=== PATIENT | female | born 1930 | race Caucasian/White ===

== ENCOUNTER 2016-10-03 16:23 | Emergency (ER) | payer MEDICARE, OTHER ==
[~2016-10-03] VITALS: Wt 49.9 kg
[2016-10-03] MEDS ORDERED: CLINDAMYCIN HC300 MG PO (18:18)
[2016-10-03] MEDS ORDERED: PROBIOTIC250 MG PO (18:26)
== END 2016-10-03 18:09 | disposition home or self-care (01) ==
LOC: ED 16:23
DX: K05.6 Periodontal disease, unspecified (principal)

== ENCOUNTER → 2016-12-23 | Outpatient (CLI) | payer MEDICARE, OTHER ==
[~2016-12-23] MED LIST: CLINDAMYCIN HC300 MG PO; PROBIOTIC250 MG PO
== END | disposition home or self-care (01) ==
LOC: LAB 09:26
DX: G50.0 Trigeminal neuralgia (principal)

== ENCOUNTER 2017-01-20 07:42 | Inpatient (IN) | payer MEDICARE, OTHER ==
[~2017-01-20] VITALS: Ht 165.1 cm; Wt 54.0 kg
[2017-01-20] VITALS (8 sets, daily range): BP systolic 142–186; BP diastolic 68–98
--- NOTE | ~2017-01-20 | PROC NOTE ---
[place], [place] PROCEDURE NOTE NAME: [id number] UNIT #: [id number] ROOM: 508 DOCTOR: MUMTAZ CASTELLANO MD,CARLTON BIRTHDATE: [birth year] DOS: 01/25/2017 PROCEDURE: Chemical pleurodesis with talc slurry. 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 POSTOPERATIVE DIAGNOSES: Successful injection of the talc slurry through the chest tube without any difficulty. PROCEDURE DESCRIPTION: Informed consent was obtained from the patient and family members. The chest tube was disconnected from the Pleur-evac. The clamp was placed. Talc slurry which was prepared using 5 g of sterile talc plus 20 mL of 2% lidocaine and remaining saline, total of 60 mL injected through the chest tube into the left pleural space without any difficulty. The patient was given 2 mg of morphine prior to the procedure. The procedure well tolerated. The chest tube will be clamped for 2 hours and removed to the suction afterwards. Close monitoring of the pain will be continued and additional pain medication will be given according to the need. CARLTON PANDYA MD CM:PROCNOTE:PROCEDURE NOTE [id number] CARLTON CASTELLANO MD
--- NOTE | ~2017-01-20 | PR ---
[place], [place] PROGRESS NOTE NAME: [facility] [id number] UNIT #: [id number] ROOM: 508 DOCTOR: MUMTAZ CASTELLANO MD,CARLTON BIRTHDATE: [birth year] DOS: 01/30/2017 PULMONARY PROGRESS NOTE SUBJECTIVE: She has been noted comfortable, resting on the bed at this time. Has not been discharged to any facility or home. She has been noted comfortable at this time. She has not been noted any symptoms of chest pain or any abdominal pain. OBJECTIVE: VITAL SIGNS: For the patient which were recorded showed the temperature noted as normal, respiratory rate 16, heart rate 81, blood pressure 130/56. The pulse oxygen saturation on 2 liters nasal cannula 100% saturation. HEENT: Examination shows no acute change. NECK: Supple. CARDIOVASCULAR: S1, S2 audible. LUNGS: Mild decreased breath sounds in the left lung base. ABDOMEN: Soft, nontender. IMPRESSION: 1. Stable respiratory status was noted at the present time with malignant pleural fluid for this patient as the primary origin of the pleural fluid was unknown. 2. Generalized debility. PLAN OF TREATMENT: No changes in the plan for this patient at this time. The patient could be discharged upon family consent to either halfway facility or the hospice services. CARLTON PANDYA MD CM:PNTRANS [id number] CARLTON CASTELLANO MD 01/30/17 1214 interface
--- NOTE | ~2017-01-20 | PR ---
[place], [place] PROGRESS NOTE NAME: [facility]ST[facility]DEZ [facility] [id number] UNIT #: [id number] ROOM: 508 DOCTOR: MUMTAZ CASTELLANO MD,CARLTON BIRTHDATE: [birth year] DOS: 01/25/2017 SUBJECTIVE: She has been noted comfortable at this time without any distress. The patient was getting pain medication and admits for any management of pain. Chest tube remains in place noted leaking around the chest tube. The chest tube ____ kinked. It has been corrected and kink was removed. OBJECTIVE: VITAL SIGNS: Showed normal temperature, respiratory rate 20, heart rate 88, blood pressure 92/48-106/48. Pulse oxygen saturation recorded on 2 liters nasal cannula 95% saturation. HEENT: Showed no new change. NECK: Supple. CARDIOVASCULAR: S1, S2 audible. LUNGS: Noted without any wheezing or crackles. ABDOMEN: Soft, nontender. LABORATORY DATA: CBC today: WBC count 11.5, hemoglobin 11.8, hematocrit 36.8, platelet count 239,000. BMP was noted as glucose 103, BUN and creatinine was normal. CO2 was 35. The chest x-ray this morning shows chest tube noted in the lower portion of the left hemithorax without any pneumothorax. IMPRESSION: 1. The patient with intermittent kinking of the chest tube which has been corrected and dressing was reapplied. 2. Exudative pleural fluid with strong suspicion of malignancy. The pleural fluid analysis was noted with 7171 WBCs. The total protein noted 3.7, glucose 72, cholesterol 86, amylase 20 and albumin 2.1. Culture of the pleural fluid does not show any bacterial growth. IMPRESSION: 1. Large pleural fluid with chest tube currently noted in place with the patient for the drainage and noted a kink which was corrected. Strong possibility of advanced malignancy has been considering current possibility of malignant pleural fluid with pending cytology. 2. Protein-calorie malnutrition, which are noted at least moderate. PLAN OF TREATMENT: Continue the chest tube in place. The discussion has been made with the family members about further assessment and management of the current pleural fluid with a suggestion of chemical pleurodesis. The family members were agreeable for this patient for the chemical pleurodesis which will be done at the bedside with using of talc. Other supportive plan and management to be continued. Usual care, other therapy and care. [place], [place] PROGRESS NOTE NAME: PASTOR HERNÁNDEZ UNIT #: [id number] ROOM: 508 DOCTOR: MUMTAZ CASTELLANO MD,CARLTON BIRTHDATE: [birth year] CARLTON PANDYA MD CM:PNTRANS [phone] CARLTON CASTELLANO MD 01/27/17 0404 interface
--- NOTE | ~2017-01-20 | PR ---
[place], [place] PROGRESS NOTE NAME: PASTOR HERNÁNDEZ UNIT #: [id number] ROOM: 508 DOCTOR: CARLTON VELA MD BIRTHDATE: [birth year] DOS: 01/27/2017 PULMONARY FOLLOWUP SUBJECTIVE: She has been noted comfortable at this time. Chest tube remains in place without any further drainage of pleural fluid was noted. She has been noted without any symptoms of cough. Mild shortness of breath was described as well as pain at the site of the chest tube. OBJECTIVE: VITAL SIGNS: For the patient, which has been recorded showed the temperature noted as normal, respiratory rate 20, heart rate 62, blood pressure 112/82. HEENT: Examination shows no acute change. NECK: Supple. CARDIOVASCULAR: S1, S2 is audible. LUNGS: The patient was noted without any wheezing or crackles in either of the lungs. ABDOMEN: Soft, nontender. LABORATORY DATA: The chest x-ray of the patient that was done this morning one which noted with the lung remained expanded, patient's chest tube in the lower portion of the lungs without any accumulation of pleural fluid. CBC today: WBC count 12.3, hemoglobin 11.2, hematocrit was noted as 34.8, platelet count was normal 276,000. BMP of the patient, BUN 52, creatinine was normal, glucose was noted as normal. Other electrolytes normal. Cytology of pleural fluid was noted as suspicious for malignancy. Cellblock was pending. IMPRESSION: 1. The patient with malignant pleural fluid at this time was noted. The origin for this patient was unknown. 2. Status post chemical pleurodesis for the malignant pleural fluid effectively. 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 PLAN OF TREATMENT: Continuation of the current plan of management at this time except removal of the chest tube, which were done at the bedside successfully. Continue pain management. Supportive plan of management, other therapy. Usual care and other plan of treatments. [place], [place] PROGRESS NOTE NAME: PASTOR HERNÁNDEZ UNIT #: [id number] ROOM: 508 DOCTOR: CARLTON VELA MD BIRTHDATE: [birth year] CARLTON PANDYA MD CM:PNTRANS [phone] CARLTON CASTELLANO MD 01/27/17 1013 interface
--- NOTE | ~2017-01-20 | PR ---
[place], [place] PROGRESS NOTE NAME: PASTOR HERNÁNDEZ [facility] #: [id number] UNIT #: [id number] ROOM: 508 DOCTOR: MUMTAZ CASTELLANO MDCARLTON BIRTHDATE: [birth year] DOS: 01/22/2017 PULMONARY FOLLOWUP SUBJECTIVE: She has been noted to be comfortable at this time, resting on the bed without any distress. She has not been noted to have any hemodynamic instability or other symptom. OBJECTIVE: VITAL SIGNS: For the patient which has been recorded showed normal temperature, respiratory rate 20, heart rate of 103, blood pressure 163/90. Pulse oxygen saturation noted on room air 93% saturation. HEENT: Showed no acute change. NECK: Supple. CARDIOVASCULAR: S1 and S2 audible. LUNGS: Noted decreased breath sounds in the left chest as previously. ABDOMEN: Soft, nontender. LABORATORY DATA: CBC that was done on the showed WBC count 12.2. Hemoglobin, hematocrit was noted as normal. The BMP was BUN 15, creatinine was normal, glucose 132. Prealbumin 16. Blood culture, no bacterial growth from 11/20/2016. The patient had a chest x-ray which was ordered by the primary care attending yesterday shows persistent left pleural fluid as previously noted. IMPRESSION: Strong suspicion of metastatic malignancy including pleural metastasis with a large left pleural fluid and atelectasis in the lingula, left lower lobe, as well. Additional mass in the left lower lobe has been considered, and ____ enlargement of the adrenal gland as well. PLAN OF TREATMENT: I did a detailed discussion with the patient's on the phone about the further assessment and intervention as necessary. So far, the patient's family members have not made any decision about further assessment and management. I did encourage this patient's to speak with all the family members to make a final decision about suspected current malignancy. The patient appeared to be metastatic and advanced and further assessment and intervention. If they would decide for further assessment, the best intervention will be to place a chest tube rather than thoracentesis. Continue in the meantime with comfort measures per usual care, other supportive therapy, plan of care and treatment. Usual care. We ordered supportive treatment and management plan. The nutritional status will be [id number] protein calorie malnutrition status. [place], [place] PROGRESS NOTE NAME: PASTOR HERNÁNDEZ [facility] UNIT #: [id number] ROOM: 508 DOCTOR: MUMTAZ CASTELLANO MD,CARLTON BIRTHDATE: [birth year] CARLTON PANDYA MD CM:MAK [id number] CARLTON CASTELLANO MD 01/22/17 1055 interface
--- NOTE | ~2017-01-20 | PR ---
[place], [place] PROGRESS NOTE [id number] #: [id number] ROOM: 508 DOCTOR: CARLTON VELA MD BIRTHDATE: [birth year] DOS: 01/24/2017 PULMONARY FOLLOWUP SUBJECTIVE: She has been noted comfortable at this time. Chest tube was inserted yesterday with large amount of pleural fluid drainage noted from the chest tube. She has been noted with some leak of the pleural fluid at the chest site. She has more than 2000 mL of pleural fluid drained in the last 24 hours. She has been noted comfortable. Pain management was continued with the use of intravenous morphine p.r.n. use. OBJECTIVE: VITAL SIGNS: Showed the temperature noted as normal, respiratory rate 20-21, heart rate of 90-88, blood pressure 105/58 and 123/60. Output of the chest tube was noted about 2300 mL. Pulse oxygen saturation was noted as 97% on 3 L nasal cannula. HEENT: Age-related changes. NECK: Supple. CARDIOVASCULAR: S1, S2 audible. LUNGS: Noted with air entry of the lungs bilaterally. ABDOMEN: Soft, nontender. EXTREMITIES: No edema, clubbing, cyanosis. LABORATORY DATA: CBC this morning: WBC count 11,000, remaining CBC was completely normal. CMP this morning, normal BUN and creatinine, CO2 35, albumin 2.6, total protein 5.5. The chest x-ray shows marked improvement in aeration of the lungs with the draining pleural fluid, chest tube in the right lower hemithorax. IMPRESSION: The patient who has been currently noted with large pleural fluid suspected, possible malignant pleural fluid, pending cytology and noted an exudative pleural fluid with current chemistry analysis. The cholesterol noted as 86. LDH noted as 3000 with a total protein of 3.7. The preliminary cultures of the pleural fluid was pending. The Gram stain shows many white blood cells without any organisms. PLAN OF MANAGEMENT: Continue the chest tube to the current pleural drainage ____ Pleur-evac. We applied the dressing after assessing the chest tube for the kink. Monitoring results of the cytology. Discussion of the family members could be made possibility of potential chemical pleurodesis to be done on this admission, possibly tomorrow depending on further improvement in the aeration of the lung. Other supportive therapy, plan and management to be continued. Usual care, other supportive care therapy and plan of management. Additional change in treatment will be done based on the progression of the illness. [place], [place] PROGRESS NOTE NAME: PASTOR HERNÁNDEZ UNIT #: [id number] ROOM: [facility] DOCTOR: CARLTON VELA MD BIRTHDATE: [birth year] CARLTON PANDYA MD CM:PNTRANS [id number] CARLTON CASTELLANO MD 01/27/17 0412 interface
--- NOTE | ~2017-01-20 | PR ---
[place], [place] PROGRESS NOTE NAME: PASTOR HERNÁNDEZ UNIT #: [id number] ROOM: 508 DOCTOR: CARLTON VELA MD BIRTHDATE: [birth year] DOS: 01/23/2017 SUBJECTIVE: She has been noted without any acute distress at this time to have symptoms of coughing, sputum expectoration, chest pain described. The patient does have symptoms of shortness of breath, which were described by the family members. OBJECTIVE: VITAL SIGNS: For the patient, which has been recorded showed the temperature noted as normal. The respiratory rate recorded as 20. Heart rate of 95, blood pressure 131/66. HEENT: Showed no acute change. NECK: Supple. CARDIOVASCULAR: S1, S2 audible. LUNGS: Shows absent breath sounds noted in the left mid to lower portion of the lung. The right lung was clear. ABDOMEN: Soft, nontender. Bowel sounds present. EXTREMITIES: Showed no edema. LABORATORY DATA: The patient's CBC today: WBC count 12.5. Remaining CBC normal. CMP this morning was noted normal. BUN and creatinine. CO2 was 35. IMPRESSION: 1. Large pleural fluid on the left side with possibility of metastatic pleural cancer would be considered. 2. Anemia. 3. Elderly status with possibility of dementia. PLAN OF TREATMENT: No changes in the plan of management today except insertion of the chest tube was planned with the ultrasound guidance. Very large pleural fluid was noted with the ultrasound assessment which was performed at the bedside. Family members were agreeable and the consent for the procedure. Further treatment changes will be ordered. The patient based on the procedure if necessary based on after the procedure. [place], [place] PROGRESS NOTE NAME: PASTOR HERNÁNDEZ UNIT #: [id number] ROOM: 508 DOCTOR: CARLTON VELA MD BIRTHDATE: [birth year] CARLTON PANDYA MD CM:PNTRANS [id number] CARLTON CASTELLANO MD 01/23/17 1632 interface
--- NOTE | ~2017-01-20 | PR ---
[place], [place] PROGRESS NOTE NAME: [facility]DEZ [id number] UNIT #: [id number] ROOM: 508 DOCTOR: MUMTAZ CASTELLANO MD,CARLTON BIRTHDATE: [birth year] DOS: 01/26/2017 SUBJECTIVE: She has been noted comfortable at this time. The chemical pleurodesis was done just for the patient successfully. She has been noted with pleural fluid drained from the chest of the patient of 224 mL afterward. She has been complaining of some pain which has been treated with pain management with use of morphine and other medications. OBJECTIVE: VITAL SIGNS: Normal temperature, respiratory rate 18, heart rate 103, blood pressure 92/42. Intake for patient was 120. Chest tube drainage 224 mL. Pulse oxygen saturation on 2 liters nasal cannula 97% saturation. HEENT: Showed no acute change. NECK: Supple. CARDIOVASCULAR: S1, S2 audible. LUNGS: Noted without any wheeze or crackles at the present time. Breath sounds noted present bilaterally. ABDOMEN: Soft, nontender. LABORATORY DATA: CBC: WBC count 18,000, otherwise normal. BMP this morning, BUN 31, creatinine was normal. CO2 of 34. Chest x-ray done this morning, the patient shows chest tube remains in place, the patient without any pneumothorax. IMPRESSION: 1. Status post chemical pleurodesis noted in the left side for this patient. 2. Leukocytosis which has noted moderately of unclear etiology. 3. Suspected malignant pleural fluid on the left side with the current chest tube in place status post chemical pleurodesis. PLAN OF TREATMENT: Await another 24 hours. Obtain another chest x-ray in the morning to assess the patient prior to removal of the chest tube. Continue optimizing pain management. Usual care. Other supportive plan of therapy. CARLTON PANDYA MD CM:PNTERRY [phone] CARLTON CASTELLANO MD 01/27/17 0453 interface
--- NOTE | ~2017-01-20 | PR ---
[place], [place] PROGRESS NOTE NAME: PASTOR HERNÁNDEZ UNIT #: [id number] ROOM: 508 DOCTOR: CARLTON VELA MD BIRTHDATE: [birth year] DOS: 01/29/2017 PULMONARY PROGRESS NOTE SUBJECTIVE: The patient has been noted comfortable at this time, sitting on the chair this morning. Her oral intake was noted significantly low as per family member. She has not reported any chest pain, shortness breath or cough. OBJECTIVE: VITAL SIGNS: Normal temperature, respiratory rate 22, heart rate 101, blood pressure 106/58. The pulse oxygen saturation noted on 2 liters nasal cannula 96% saturation. HEENT: Examination shows age-related changes. NECK: Supple. CARDIOVASCULAR: S1, S2 audible. LUNGS: Noted with mild reduced breath sounds in the left lower lung. There were no wheezing or crackles. ABDOMEN: Soft. Nontender. LABORATORY DATA: BMP this morning, BUN 35, creatinine was normal. CBC this morning, hemoglobin 10.5, hematocrit 32.8, WBC count and platelet count was normal. IMPRESSION: 1. The patient with stable respiratory status with a malignant pleural fluid noted in the left side, status post successful chemical pleurodesis and chest tube thoracostomy. 2. Protein-calorie malnutrition. 3. Elderly status. PLAN OF MANAGEMNENT: No changes in the plan of management at this time need to be done. The patient will be continued on current plan of management at this time per the comfort. Usual care. [place], [place] PROGRESS NOTE NAME: PASTOR HERNÁNDEZ UNIT #: [id number] ROOM: 508 DOCTOR: CARLTON VELA MD BIRTHDATE: [birth year] CARLTON PANDYA MD CM:MAK [id number] CARLTON CASTELLANO MD 01/29/17 1025 interface
--- NOTE | ~2017-01-20 | CON ---
[place], [place] REPORT OF CONSULTATION NAME: PASTOR HERNÁNDEZ [facility] #: [id number] UNIT #: [id number] ROOM: 508 DOCTOR: CARLTON VELA MD BIRTHDATE: [birth year] DOS: 01/21/2017 PULMONARY CONSULTATION EVALUATION AND MANAGEMENT The consultation was requested by the Hospitalist Service. REASON FOR CONSULTATION: Assessment of pleural fluid and lung mass. HISTORY OF PRESENT ILLNESS: The history was noted limited from the patient. The history of the patient was reviewed from the medical record documentation with current physician and some of the history was taken from the patient. This 87-year-old white female was brought to hospital in the private car for several complaints. The patient has reported symptoms of difficulty ambulating, general weakness, fatigue with symptoms of nausea, decreased appetite, and others. She does have some symptoms of shortness of breath, but not noted severe as per the patient. Denies any symptoms of coughing, sputum expectoration, or hemoptysis. She reported no acute respiratory symptoms at home. REVIEW OF SYSTEMS: Limited. CONSTITUTIONAL: Decreased appetite has been noted, not sure about weight loss. Denies symptoms of fever or chills. EYES: Denies any blurry vision or any eye discharge. EAR, NOSE, AND THROAT: Denies any symptoms of rhinorrhea, postnasal drainage, epistaxis, sore throat, or hoarseness. CARDIOVASCULAR: Denies anginal pain, edema, or pain of the lower extremities. GASTROINTESTINAL: History of nonspecific weight loss, amount of weight loss rather was unknown. GENITOURINARY: Denies any symptoms of dysuria, suprapubic pain, hematuria, or flank pain. MUSCULOSKELETAL: Denies acute joint pain, redness, or tenderness. CENTRAL NERVOUS SYSTEM: Denies any dizziness, headache, diplopia, or syncopal episodes. Generalized weakness was described. SKIN: Denies lesions or rashes. Remaining systems were reviewed with the patient, they were noted all negative. PAST MEDICAL HISTORY: Described as history of trigeminal neuralgia in the past. PAST SURGICAL HISTORY: Reported as 1. History of prolapse of the bladder. 2. Cholecystectomy. SOCIAL HISTORY: The patient stated she is , has 4 children. Denies any history of alcohol use or any illicit drugs. FAMILY HISTORY: The patient's mother at the age of 89 years from medical illnesses. Father at the age of 70 years from complication related to brain cancer. HOME MEDICATIONS: The patient was noted to use Tegretol 200 mg p.o. t.i.d. [place], [place] REPORT OF CONSULTATION NAME: PASTOR HERNÁNDEZ UNIT #: [id number] ROOM: 508 DOCTOR: CARLTON VELA MD BIRTHDATE: [birth year] ALLERGIES: No known drug allergies. PHYSICAL EXAMINATION: GENERAL: This is an elderly 87-year-old female who has been noted comfortably lying on the bed without any acute distress. Height was recorded as 5 feet 5 inches, weight 119 pounds, BMI 19.8. VITAL SIGNS: Normal temperature, respiratory rate 18-24, heart rate 94-109, blood pressure 198/98-142/94. Intake 1720 mL, output 750 mL without Leal catheter in the last 24 hours, and recorded pulse oxygen saturation 94% on room air at rest. HEENT: Head was atraumatic. Eyes: No icterus. NECK: Supple. CARDIOVASCULAR: S1, S2 audible. LUNGS: Decreased breath sounds noted in the left lower portion of the lungs. ABDOMEN: Soft, nontender, bowel sounds present. CENTRAL NERVOUS SYSTEM: Some loss of muscle mass. The patient was noted without any gross focal deficit. She is able to move upper and lower extremities well. MUSCULOSKELETAL: No obvious deformities. SKIN: Showed no lesions or rashes. LABORATORY DATA: CBC done on 01/20/2017: WBC count 11.8, hemoglobin and hematocrit were normal, and platelet count was normal. Lactic acid ____ on admission. PT/PTT were noted as normal on admission. BMP on admission on 01/20/2017: BUN 25, creatinine was normal, glucose mildly elevated, sodium 147, and potassium 3.4. CBC this morning was essentially noted normal. PT/PTT repeated again normal. BMP this morning was noted as normal except potassium decreased at 3.2. Liver function test today shows mild reduction in the albumin at 2.9, AST of 43, and total protein 6.0. The chest x-ray done on 01/20/2017 shows moderate, possibly small loculated pleural fluid on the left side. Remaining lungs appeared to be clear of any acute abnormalities. Chest x-ray of 07/13/2016 was reviewed, noted without any acute abnormalities as noted on current chest x-ray. CT scan of the abdomen and pelvis was completed on this admission in the Emergency Room on 01/20/2017, no acute abdominal or pelvic pathologies. Incidental finding of large pleural fluid with a mass in the left lower lung. CT scan of the chest that was completed this morning, 01/21/2017, with intravenous contrast, was personally reviewed. It shows a very large left pleural fluid with complete ____ lingula and partially of the left upper lobe and left lower lobe ____. Right adrenal mass was noted with the size of 2.1 cm in size. Significant enlargement of the AP window lymph node noted with shorter dimension 2.3 cm and the largest dimension 2.7 cm as well. Mildly enlarged left hilar lymph node was also noted. IMPRESSION: 1. The patient who has been currently admitted to the hospital. The patient with abdominal pain, etiology could not be determined, but noted with very large pleural fluid with significant atelectasis of the left lung as well as lymphadenopathy in the AP window and left hilum, highly suggestive of a malignant process. The differential diagnosis considered would be primary lung cancer with small cell cancer as a possibility. [place], [place] REPORT OF CONSULTATION NAME: PASTOR HERNÁNDEZ UNIT #: [id number] ROOM: 508 DOCTOR: CARLTON VELA MD BIRTHDATE: [birth year] 2. 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 3. Weight loss, most likely related to current malignancy; however, the weight loss has not been quantified at this time. 4. Significant pleural ____ suggestive of possibility of malignant process involving the parietal pleura. 5. Uncontrolled hypertension was also noted in this admission as well. 6. Electrolyte imbalance noted with mild hyperkalemia and mild hypokalemia, rule out any adrenal problems in view of current electrolyte abnormality and hypertension such as hyperadrenalism. PLAN OF MANAGEMENT: Discussion with the family members about the further assessment because of current age of 87 years for additional assessment to be done. As a first step, the patient most likely require the chest tube insertion for the drainage of current large pleural fluid and to be analyzed. Bronchoscopy could be also done to rule out any endobronchial obstructive lesions later on as well. If the family member decided no further workup for the patient's current suspected advanced malignancy, it certainly will be respected and the patient will be treated with comfort measures. Other usual treatment, therapy plan and management, supportive care to be continued. We assessed the patient for hyperadrenalism as well. Usual care, other supportive therapy, plan of management. Nutrition support for the patient as tolerated. Ordered repeat albumin level as well. Thanks for allowing me to participate in the care of this patient. CARLTON PANDYA MD CM:CONSTR:REPORT OF CONSULTATION 1227 01/21/17 1401 interface
--- NOTE | ~2017-01-20 | PR ---
[place], [place] PROGRESS NOTE NAME: PASTOR HERNÁNDEZ UNIT #: [id number] ROOM: 508 DOCTOR: CARLTON VELA MD BIRTHDATE: [birth year] DOS: 01/28/2017 PULMONARY FOLLOWUP SUBJECTIVE: The patient has been noted without any ongoing acute new respiratory complaints at the present time. She has been noted quite comfortable. The patient responding to the family members. She has been noted awake and alert. There was no coughing. Chest tube was removed yesterday successfully from the left hemithorax after completion of the chemical pleurodesis. OBJECTIVE: VITAL SIGNS: Shows normal temperature, respiratory rate 20, heart rate 96, blood pressure 120/54. Pulse oxygen saturation noted on 2 liters nasal cannula 93% saturation. HEENT: Examination shows no acute change. NECK: Supple. CARDIOVASCULAR: S1, S2 audible. LUNGS: Noted without any wheezing or crackles. Mild decreased breath sounds noted in the right lower chest. ABDOMEN: Soft, nontender. LABORATORY DATA: CBC today: WBC count normal, platelet count was normal, hemoglobin 11.1, hematocrit 34.3. BMP this morning, BUN 48, creatinine was normal, glucose normal, carbon dioxide 35. The chest x-ray shows chemical pleurodesis for the patient, noted effective with area of pleural thickening. The cellblock for this patient was noted abnormal for malignant cells. The slides were sent to the [facility] for further consultation and assessment. IMPRESSION: 1. 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 Malignant pleural fluid which has been already treated with chest tube thoracostomy followed by chemical pleurodesis. 2. Severe debility. PLAN OF MANAGEMENT: No changes in the plan of management at this time will be necessary. Continue all supportive therapy, plan of management. Usual care. Supportive care and other treatment for the patient as ongoing. No additional change in the treatment will be necessary. The patient could be transferred to jail facility or home setting when felt appropriate by the primary care physician. [place], [place] PROGRESS NOTE NAME: PASTOR HERNÁNDEZ UNIT #: [id number] ROOM: 508 DOCTOR: CARLTON VELA MD BIRTHDATE: [birth year] CARLTON PANDYA MD CM:MAK CARLTON CASTELLANO MD 01/28/17 1123 interface
--- NOTE | ~2017-01-20 | CON ---
[place], [place] REPORT OF CONSULTATION NAME: PASTOR HERNÁNDEZ [facility] #: [id number] UNIT #: [id number] ROOM: 508 DOCTOR: JOSE TaDAHLIA BIRTHDATE: [birth year] DOS: 01/27/2017 WOUND CARE CONSULTATION HISTORY OF PRESENT ILLNESS: The patient is an 87-year-old female who was admitted to the Emergency Room Department on 01/20/2017 for abdominal pain. She was also noted to have experienced multiple subjective feelings of lightheadedness, weakness, decreased oral intake, leg and foot swelling and essentially being weak and bedridden. Also, she notes decreased oral intake and some weight loss. Apparently, these symptoms were present for over a week. She also reports of nausea. Her initial chest x-ray showed a moderately large pleural effusion of the left base and compressive atelectasis of the left lower lobe. There is also a mass noted, 7.3 x 4.9 cm mass. There was an indeterminate adrenal mass also noted. During her workup in hospital stay, she was noted to develop a pressure ulcer of the coccyx area. Wound care has been consulted for this. PAST MEDICAL HISTORY: Significant for the following: periodontal disease, strain of the finger of the left hand, trigeminal neuralgia. PAST SURGICAL HISTORY: She is status post cholecystectomy, prolapse of the bladder. SOCIAL HISTORY: She is a nonsmoker, does not drink alcohol. FAMILY HISTORY: Remarkable for head cancer in the father, unspecified, and for the mother, old age. ALLERGIES: No known drug allergies. CURRENT MEDICATIONS: That have been ordered are morphine 2 mg IV q.4h. p.r.n., Claritin 10 mg p.o. daily, Flonase nasally daily, Levaquin 750 IV daily, Zestril 20 p.o. daily, Lovenox 40 subq daily, Protonix 40 p.o. daily, Tegretol 200 p.o. t.i.d., Zofran, morphine, milk of magnesia, Dulcolax, [place], Tylenol. REVIEW OF SYSTEMS: Essentially unobtainable. The patient did receive morphine for discomfort. She is lying in bed and staff notes that now she is on a pureed diet with poor p.o. intake. It looks like Nutrition has seen her and already added protein supplementation to her regimen. OBJECTIVE: VITAL SIGNS: Temperature is 99.1, pulse is 98, respirations 16, blood pressure is 104/52. GENERAL: This is an elderly female who is in no acute respiratory distress, but does appear to be very uncomfortable just with turning over to examine her wound. HEENT: She is in no acute respiratory distress. I can see her oropharynx is dry. Extraocular movements are intact. Sclerae nonicteric. NECK: I do not appreciate any JVD. LUNGS: Have coarse breath sounds in the bases. [place], [place] REPORT OF CONSULTATION NAME: PASTOR HERNÁNDEZ UNIT #: [id number] ROOM: 508 DOCTOR: DAHLIA GARCIA M.D. BIRTHDATE: [birth year] CARDIOVASCULAR: S1, S2 tachycardic. ABDOMEN: Soft at this time. EXTREMITIES: There is no edema and there is no calf tenderness. She does have a coccyx ulcer present that is open. The wound is measuring approximately 0.8 x 0.35 x 0.2 in depth. There is some fibrin slough present, so I classified this as a stage 3. It is fairly small at this point; however, there is surrounding periwound erythema that would be consistent with more areas of possible compromise around the periwound. LABORATORY DATA: Her white count today was 12.3, down from 18, hemoglobin is 11.2, platelets are 276, her BUN is high at 52. Albumin is low at 2.6, protein is low at 5.5. ASSESSMENT AND PLAN: Stage 3 pressure ulcer of the coccyx. I would agree with Ray and a foam dressing at this point. I would encourage offloading the area as much as possible. No direct pressure to the wound. Side to side turns only if the patient can tolerate it. I would also use the foam wedge as well to help prevent her from turning on her backside. She also seems to be now have evidence of protein-calorie malnutrition and this seems to have already been addressed by Nutrition. If the wound deteriorates further despite these measurements, may want to consider a different type of mattress such as an air fluidized mattress if the wound worsens at all. This patient has multiple other medical problems that are being managed by her medical team. Pleural fluid was suspicious for malignancy and that has been sent out for further evaluation. Thank you for this consult. DAHLIA GARCIA MD CM:CONSTR:REPORT OF CONSULTATION 1659 02/07/17 0951 interface
--- NOTE | ~2017-01-20 | PROC NOTE ---
[place], [place] PROCEDURE NOTE NAME: [id number] UN[facility] #: [id number] ROOM: 508 DOCTOR: MUMTAZ CASTELLANO MD,CARLTON BIRTHDATE: [birth year] DOS: 01/23/2017 PROCEDURE: Chest tube thoracostomy, left-sided ultrasound guided. PREOPERATIVE DIAGNOSIS: Very large left pleural fluid. POSTOPERATIVE DIAGNOSIS: Very large left pleural fluid. PROCEDURE DESCRIPTION: Informed consent obtained from the patient's family members. She was placed in sitting position. The site of the chest tube was marked with the ultrasound assessment at the skin posteriorly in the scapular line. After that, the skin was cleaned with chlorhexidine solution. A 1% lidocaine was administered in the skin intercostal space during administration of local anesthetic, the left pleural space was entered. A small amount of fluid was aspirated. After that, large bore needle entered into the pleural space without any difficulty. Guidewire threaded through the needle into the pleural space. The guidewire was kept in place. The needle was removed. The incision was given at the skin. Plastic dilator was used to dilate the area of the incision up to 22-Mongolian size. A 20-Mongolian chest tube inserted by the Seldinger technique to 8 cm of water successfully without difficulty over the guidewire. The guidewire removed. Chest tube was secured to the skin with the sutures. Initial 300 mL of pleural fluid was drained in the specimen container which was sent to the lab. Procedure well tolerated by the patient without any difficulty. Chest x-ray was also ordered after the procedure to reassess the expansion of the lungs with current chest tube thoracostomy. The cytology of pleural fluid was also sent. CARLTON PANDYA MD CM:PROCNOTE:PROCEDURE NOTE 1617 1644 CARLTON CASTELLANO MD
[2017-01-20 08:24] LABS: BASO # 0.1 10*3/uL (0.0-0.1); BASO % 0.7 % (0.0-1.0); EOS # 0.2 10*3/uL (0.0-0.4); HEMOGLOBIN 14.2 g/dl (12.0-16.0); LYMPH # 1.5 10*3/uL (1.3-4.4); LYMPH % 12.7 % (27.0-41.0); MEAN CELL VOLUME 93.8 fl (81.0-99.0); MEAN CORPUSCULAR HGB 30.3 pg (27.0-31.0); MEAN CORPUSCULAR HGB CONC 32.3 g/dl (33.0-37.0); MEAN PLATELET VOLUME 9.4 fl (9.6-12.3); MONO # 0.8 10*3/uL (0.1-1.0); MONO % 6.5 % (3.0-9.0); NEUT # 9.2 10*3/uL (2.3-7.9); NEUT % 77.7 % (47.0-73.0); PLATELET COUNT AUTOMATED 324 10*3/uL (130-400); RED BLOOD COUNT 4.69 10*6/uL (4.10-5.10); WHITE BLOOD COUNT 11.8 10*3/uL (4.8-10.8)
[2017-01-20 08:34] LABS: ACT PARTIAL THROMBO TIME 21.5 SECONDS (20.8-31.5)
[2017-01-20 08:48] LABS: ALBUMIN 3.5 gm/dl (3.1-4.5); ALKALINE PHOSPHATASE 108 U/L (45-117); BUN 25 mg/dl (7-24); CHLORIDE 105 mmol/L (98-107); CKMB 1.1 ng/ml (0.5-3.6); CPK 30 U/L (26-192); LIPASE 185 U/L (73-393); MAGNESIUM 1.9 mg/dL (1.5-2.1); POTASSIUM 3.4 mmol/L (3.5-5.1); SGOT/AST 60 IU/L (3-35); SGPT/ALT 69 U/L (12-78); SODIUM 147 mmol/L (136-145); TOTAL PROTEIN 7.3 gm/dL (6.4-8.2); TROPONIN I < 0.015 ng/ml (<0.045)
[2017-01-20 09:00] LABS: CARBAMAZEPINE (TEGRETOL) TOTAL 5.8 ug/ml (4-12)
[2017-01-20 09:34] LABS: BILIRUBIN NEGATIVE (NEGATIVE); BLOOD NEGATIVE (NEGATIVE); CLARITY SL CLOUDY (CLEAR); COLOR YELLOW (YELLOW); GLUCOSE NEGATIVE (NEGATIVE); KETONE NEGATIVE (NEGATIVE); LEUKO ESTERASE NEGATIVE (NEGATIVE); NITRITE NEGATIVE (NEGATIVE)
[2017-01-20 09:40] LABS: YEAST 1+
[2017-01-20 09:41] LABS: BACTERIA TRACE
[2017-01-20] MEDS ORDERED: CARBAMAZEPINE200 M2 PO (11:00)
[2017-01-21] VITALS: BP 160/72
[2017-01-21 06:28] LABS: BASO # 0.1 10*3/uL (0.0-0.1); BASO % 0.7 % (0.0-1.0); EOS # 0.4 10*3/uL (0.0-0.4); EOS % 3.6 % (1.0-4.0); HEMATOCRIT 38.5 % (37.0-47.0); HEMOGLOBIN 12.6 g/dl (12.0-16.0); LYMPH # 1.4 10*3/uL (1.3-4.4); LYMPH % 14.6 % (27.0-41.0); MEAN CELL VOLUME 93.7 fl (81.0-99.0); MEAN CORPUSCULAR HGB 30.7 pg (27.0-31.0); MEAN CORPUSCULAR HGB CONC 32.7 g/dl (33.0-37.0); MEAN PLATELET VOLUME 9.5 fl (9.6-12.3); MONO # 0.8 10*3/uL (0.1-1.0); MONO % 7.7 % (3.0-9.0); NEUT # 7.2 10*3/uL (2.3-7.9); PLATELET COUNT AUTOMATED 267 10*3/uL (130-400); RED BLOOD COUNT 4.11 10*6/uL (4.10-5.10); RED CELL DISTRI WIDTH 12.9 % (0-14.5); WHITE BLOOD COUNT 9.8 10*3/uL (4.8-10.8)
[2017-01-21 06:55] LABS: ALBUMIN 2.9 gm/dl (3.1-4.5); BUN 16 mg/dl (7-24); CHLORIDE 103 mmol/L (98-107); MAGNESIUM 1.7 mg/dL (1.5-2.1); POTASSIUM 3.2 mmol/L (3.5-5.1); SGOT/AST 43 IU/L (3-35); SGPT/ALT 50 U/L (12-78); SODIUM 145 mmol/L (136-145)
[2017-01-21 07:00] LABS: ACT PARTIAL THROMBO TIME 21.9 SECONDS (20.8-31.5)
[2017-01-21 07:04] LABS: ALKALINE PHOSPHATASE 84 U/L (45-117); CHOLESTEROL 175 mg/dL (<200); FREE T4 1.15 ng/dl (0.76-1.46); HDL CHOLESTEROL 64 mg/dl (40-60); LDL CHOLESTEROL 97 mg/dL (9-159); PHOSPHOROUS 2.9 mg/dL (2.5-4.9); TRIGLYCERIDES 70 mg/dl (<150); VLDL CHOLESTEROL 14 mg/dL (6-40)
[2017-01-21 07:38] LABS: VITAMIN D, 25-HYDROXY 21.1 ng/mL (30-100)
[2017-01-21 08:00] VITALS: BP 198/98
[2017-01-21 16:00] VITALS: BP 127/73
[2017-01-21 20:00] VITALS: BP 114/65
[2017-01-22] VITALS: BP 163/90
[2017-01-22 06:14] LABS: BASO # 0.1 10*3/uL (0.0-0.1); BASO % 0.5 % (0.0-1.0); EOS # 0.3 10*3/uL (0.0-0.4); EOS % 2.2 % (1.0-4.0); HEMATOCRIT 41.8 % (37.0-47.0); HEMOGLOBIN 13.5 g/dl (12.0-16.0); LYMPH # 1.7 10*3/uL (1.3-4.4); LYMPH % 13.3 % (27.0-41.0); MEAN CELL VOLUME 93.1 fl (81.0-99.0); MEAN CORPUSCULAR HGB 30.1 pg (27.0-31.0); MEAN CORPUSCULAR HGB CONC 32.3 g/dl (33.0-37.0); MEAN PLATELET VOLUME 9.5 fl (9.6-12.3); MONO % 7.6 % (3.0-9.0); NEUT # 9.6 10*3/uL (2.3-7.9); NEUT % 75.9 % (47.0-73.0); PLATELET COUNT AUTOMATED 320 10*3/uL (130-400); RED BLOOD COUNT 4.49 10*6/uL (4.10-5.10); RED CELL DISTRI WIDTH 13.1 % (0-14.5); WHITE BLOOD COUNT 12.6 10*3/uL (4.8-10.8)
[2017-01-22 06:17] LABS: BUN 15 mg/dl (7-24); CHLORIDE 104 mmol/L (98-107); CREATININE 0.63 mg/dL (0.55-1.02); SODIUM 142 mmol/L (136-145)
[2017-01-22 06:21] LABS: PREALBUMIN 16 mg/dl (20-40)
[2017-01-22 08:00] VITALS: BP 154/70
[2017-01-22 12:00] VITALS: BP 124/70
[2017-01-22 16:00] VITALS: BP 125/63
[2017-01-22 20:00] VITALS: BP 105/57
[2017-01-23] VITALS: BP 137/66
[2017-01-23 06:21] LABS: ALBUMIN 2.6 gm/dl (3.1-4.5); BUN 16 mg/dl (7-24); CHLORIDE 98 mmol/L (98-107); CREATININE 0.56 mg/dL (0.55-1.02); POTASSIUM 3.8 mmol/L (3.5-5.1); SGOT/AST 42 IU/L (3-35); SGPT/ALT 50 U/L (12-78); SODIUM 140 mmol/L (136-145); TOTAL PROTEIN 5.7 gm/dL (6.4-8.2)
[2017-01-23 06:24] LABS: ALKALINE PHOSPHATASE 83 U/L (45-117); BASO % 0.2 % (0.0-1.0); EOS # 0.2 10*3/uL (0.0-0.4); EOS % 1.5 % (1.0-4.0); HEMOGLOBIN 12.2 g/dl (12.0-16.0); LYMPH # 1.2 10*3/uL (1.3-4.4); LYMPH % 9.3 % (27.0-41.0); MEAN CELL VOLUME 94.3 fl (81.0-99.0); MEAN CORPUSCULAR HGB 30.3 pg (27.0-31.0); MEAN CORPUSCULAR HGB CONC 32.1 g/dl (33.0-37.0); MEAN PLATELET VOLUME 9.9 fl (9.6-12.3); MONO # 1.1 10*3/uL (0.1-1.0); MONO % 8.8 % (3.0-9.0); NEUT % 79.7 % (47.0-73.0); PLATELET COUNT AUTOMATED 266 10*3/uL (130-400); RED BLOOD COUNT 4.03 10*6/uL (4.10-5.10); RED CELL DISTRI WIDTH 13.1 % (0-14.5); TROPONIN I < 0.015 ng/ml (<0.045); WHITE BLOOD COUNT 12.5 10*3/uL (4.8-10.8)
[2017-01-23 08:00] VITALS: BP 106/82
[2017-01-23 12:00] VITALS: BP 101/53; BP 120/61
[2017-01-23 13:32] LABS: BODY FLUID WBC 7171 /uL
[2017-01-23 16:00] VITALS: BP 88/32
[2017-01-23 20:00] VITALS: BP 105/58
[2017-01-24] VITALS: BP 123/60
[2017-01-24 07:07] LABS: BASO # 0.1 10*3/uL (0.0-0.1); BASO % 0.5 % (0.0-1.0); EOS # 0.4 10*3/uL (0.0-0.4); EOS % 3.5 % (1.0-4.0); HEMATOCRIT 39.3 % (37.0-47.0); HEMOGLOBIN 12.7 g/dl (12.0-16.0); LYMPH # 1.2 10*3/uL (1.3-4.4); LYMPH % 10.5 % (27.0-41.0); MEAN CELL VOLUME 93.8 fl (81.0-99.0); MEAN CORPUSCULAR HGB 30.3 pg (27.0-31.0); MEAN CORPUSCULAR HGB CONC 32.3 g/dl (33.0-37.0); MONO # 0.9 10*3/uL (0.1-1.0); MONO % 8.6 % (3.0-9.0); NEUT # 8.4 10*3/uL (2.3-7.9); NEUT % 76.5 % (47.0-73.0); PLATELET COUNT AUTOMATED 265 10*3/uL (130-400); RED BLOOD COUNT 4.19 10*6/uL (4.10-5.10); RED CELL DISTRI WIDTH 13.2 % (0-14.5)
[2017-01-24 07:37] LABS: ALBUMIN 2.6 gm/dl (3.1-4.5); ALKALINE PHOSPHATASE 76 U/L (45-117); BUN 21 mg/dl (7-24); CHLORIDE 98 mmol/L (98-107); CREATININE 0.63 mg/dL (0.55-1.02); POTASSIUM 3.6 mmol/L (3.5-5.1); SGOT/AST 35 IU/L (3-35); SGPT/ALT 37 U/L (12-78); SODIUM 139 mmol/L (136-145); TOTAL PROTEIN 5.5 gm/dL (6.4-8.2)
[2017-01-24 08:00] VITALS: BP 100/50
[2017-01-24 12:00] VITALS: BP 107/60; BP 98/52
[2017-01-24 16:00] VITALS: BP 104/89
[2017-01-24 20:00] VITALS: BP 110/54
[2017-01-25] VITALS: BP 102/53
[2017-01-25 07:10] LABS: BASO # 0.1 10*3/uL (0.0-0.1); BASO % 0.4 % (0.0-1.0); EOS # 0.6 10*3/uL (0.0-0.4); EOS % 4.8 % (1.0-4.0); HEMOGLOBIN 11.8 g/dl (12.0-16.0); LYMPH # 1.1 10*3/uL (1.3-4.4); LYMPH % 9.3 % (27.0-41.0); MEAN CELL VOLUME 94.5 fl (81.0-99.0); MEAN CORPUSCULAR HGB CONC 32.8 g/dl (33.0-37.0); MEAN PLATELET VOLUME 10.3 fl (9.6-12.3); MONO # 1.1 10*3/uL (0.1-1.0); MONO % 9.3 % (3.0-9.0); NEUT # 8.7 10*3/uL (2.3-7.9); NEUT % 75.7 % (47.0-73.0); PLATELET COUNT AUTOMATED 239 10*3/uL (130-400); RED BLOOD COUNT 3.81 10*6/uL (4.10-5.10); RED CELL DISTRI WIDTH 13.2 % (0-14.5); WHITE BLOOD COUNT 11.5 10*3/uL (4.8-10.8)
[2017-01-25 07:40] LABS: BUN 23 mg/dl (7-24); CHLORIDE 98 mmol/L (98-107); CREATININE 0.65 mg/dL (0.55-1.02); POTASSIUM 3.5 mmol/L (3.5-5.1); SODIUM 139 mmol/L (136-145)
[2017-01-25 08:01] VITALS: BP 106/48
[2017-01-25 12:24] VITALS: BP 92/48
[2017-01-25 16:00] VITALS: BP 91/27
[2017-01-25 20:00] VITALS: BP 119/48
[2017-01-26] VITALS: BP 92/60
[2017-01-26 06:47] LABS: HEMATOCRIT 41.9 % (37.0-47.0); HEMOGLOBIN 13.5 g/dl (12.0-16.0); MEAN CELL VOLUME 94.6 fl (81.0-99.0); MEAN CORPUSCULAR HGB 30.5 pg (27.0-31.0); MEAN CORPUSCULAR HGB CONC 32.2 g/dl (33.0-37.0); MEAN PLATELET VOLUME 10.1 fl (9.6-12.3); PLATELET COUNT AUTOMATED 288 10*3/uL (130-400); RED BLOOD COUNT 4.43 10*6/uL (4.10-5.10); RED CELL DISTRI WIDTH 13.2 % (0-14.5)
[2017-01-26 07:14] LABS: PLATELET SUFFICIENCY NORMAL (NORMAL); TOTAL CELLS COUNTED 100 #CELLS
[2017-01-26 07:18] LABS: BUN 31 mg/dl (7-24); CHLORIDE 97 mmol/L (98-107); CREATININE 0.77 mg/dL (0.55-1.02); POTASSIUM 4.3 mmol/L (3.5-5.1); SODIUM 138 mmol/L (136-145)
[2017-01-26 08:00] VITALS: BP 92/42
[2017-01-26 12:00] VITALS: BP 148/56
[2017-01-26 16:00] VITALS: BP 85/43
[2017-01-26 20:03] VITALS: BP 114/55
[2017-01-27] VITALS: BP 112/52
[2017-01-27 06:08] LABS: CHLORIDE 99 mmol/L (98-107); CREATININE 0.98 mg/dL (0.55-1.02); POTASSIUM 4.3 mmol/L (3.5-5.1); SODIUM 140 mmol/L (136-145)
[2017-01-27 06:12] LABS: BUN 52 mg/dl (7-24)
[2017-01-27 06:27] LABS: BASO % 0.3 % (0.0-1.0); EOS # 0.2 10*3/uL (0.0-0.4); EOS % 1.7 % (1.0-4.0); HEMATOCRIT 34.8 % (37.0-47.0); HEMOGLOBIN 11.2 g/dl (12.0-16.0); LYMPH # 0.8 10*3/uL (1.3-4.4); LYMPH % 6.5 % (27.0-41.0); MEAN CELL VOLUME 93.8 fl (81.0-99.0); MEAN CORPUSCULAR HGB 30.2 pg (27.0-31.0); MEAN CORPUSCULAR HGB CONC 32.2 g/dl (33.0-37.0); MEAN PLATELET VOLUME 10.7 fl (9.6-12.3); MONO # 1.1 10*3/uL (0.1-1.0); NEUT # 10.1 10*3/uL (2.3-7.9); NEUT % 81.9 % (47.0-73.0); PLATELET COUNT AUTOMATED 276 10*3/uL (130-400); RED BLOOD COUNT 3.71 10*6/uL (4.10-5.10); RED CELL DISTRI WIDTH 13.2 % (0-14.5); WHITE BLOOD COUNT 12.3 10*3/uL (4.8-10.8)
[2017-01-27 08:00] VITALS: BP 112/82; BP 96/52
[2017-01-27 12:00] VITALS: BP 118/61
[2017-01-27 16:00] VITALS: BP 104/52
[2017-01-27 20:00] VITALS: BP 101/54
[2017-01-28] VITALS: BP 100/50
[2017-01-28 06:40] LABS: BASO % 0.4 % (0.0-1.0); EOS # 0.3 10*3/uL (0.0-0.4); EOS % 3.1 % (1.0-4.0); HEMATOCRIT 34.3 % (37.0-47.0); HEMOGLOBIN 11.1 g/dl (12.0-16.0); LYMPH # 0.8 10*3/uL (1.3-4.4); LYMPH % 8.5 % (27.0-41.0); MEAN CELL VOLUME 95.5 fl (81.0-99.0); MEAN CORPUSCULAR HGB 30.9 pg (27.0-31.0); MEAN CORPUSCULAR HGB CONC 32.4 g/dl (33.0-37.0); MEAN PLATELET VOLUME 9.5 fl (9.6-12.3); MONO # 0.9 10*3/uL (0.1-1.0); MONO % 9.9 % (3.0-9.0); NEUT % 77.7 % (47.0-73.0); PLATELET COUNT AUTOMATED 267 10*3/uL (130-400); RED BLOOD COUNT 3.59 10*6/uL (4.10-5.10); RED CELL DISTRI WIDTH 13.3 % (0-14.5)
[2017-01-28 07:14] LABS: BUN 48 mg/dl (7-24); CHLORIDE 104 mmol/L (98-107); CREATININE 0.71 mg/dL (0.55-1.02); SODIUM 144 mmol/L (136-145)
[2017-01-28 08:00] VITALS: BP 120/54
[2017-01-28 12:00] VITALS: BP 84/41
[2017-01-28 16:00] VITALS: BP 112/50
[2017-01-28 20:00] VITALS: BP 108/54
[2017-01-29] VITALS: BP 95/42
[2017-01-29 06:10] LABS: BASO % 0.4 % (0.0-1.0); EOS # 0.3 10*3/uL (0.0-0.4); EOS % 3.9 % (1.0-4.0); HEMATOCRIT 32.8 % (37.0-47.0); HEMOGLOBIN 10.5 g/dl (12.0-16.0); LYMPH % 12.8 % (27.0-41.0); MEAN CELL VOLUME 95.3 fl (81.0-99.0); MEAN CORPUSCULAR HGB 30.5 pg (27.0-31.0); MEAN PLATELET VOLUME 9.8 fl (9.6-12.3); MONO # 0.8 10*3/uL (0.1-1.0); MONO % 10.4 % (3.0-9.0); NEUT # 5.8 10*3/uL (2.3-7.9); PLATELET COUNT AUTOMATED 280 10*3/uL (130-400); RED BLOOD COUNT 3.44 10*6/uL (4.10-5.10); RED CELL DISTRI WIDTH 13.2 % (0-14.5)
[2017-01-29 06:16] LABS: CHLORIDE 103 mmol/L (98-107); CREATININE 0.69 mg/dL (0.55-1.02); POTASSIUM 4.2 mmol/L (3.5-5.1); SODIUM 143 mmol/L (136-145)
[2017-01-29 06:21] LABS: BUN 35 mg/dl (7-24)
[2017-01-29 08:00] VITALS: BP 106/58
[2017-01-29 16:00] VITALS: BP 101/44
[2017-01-29 20:00] VITALS: BP 111/45; BP 160/54
[2017-01-30] VITALS: BP 110/48
[2017-01-30 04:00] VITALS: BP 110/48
[2017-01-30 08:00] VITALS: BP 130/56
[2017-01-30 12:00] VITALS: BP 126/63
[2017-01-30] MEDS ORDERED: FLUTICASON0.05 MG/AC NAS (12:11)
[2017-01-30] MEDS ORDERED: LISINOPRIL20 MG PO (12:11)
[2017-01-30] MEDS ORDERED: GOOD NEIGHBOR L10 MG PO (12:11)
[2017-02-08] MEDS ORDERED: MEGACE400 MG/10 PO (22:07)
== END 2017-01-30 15:54 | disposition other institution (70) | DRG 853 ==
LOC: ED 07:42 → EDHOLD 09:56 → 5E 09:56
PROVIDERS: Emergency Medicine; Family Medicine; Hospitalist; Internal Medicine; Internal Medicine Critical Care Medicine; ADMIT Internal Medicine
PROC: 0W9B40Z Drainage of Left Pleural Cavity with Drainage Device, Percutaneous Endoscopic Approach (ICD-10-PCS; 2017-01-23)
PROC: 3E0L3GC Introduction of Other Therapeutic Substance into Pleural Cavity, Percutaneous Approach (ICD-10-PCS; principal; 2017-01-25)
DX: A41.9 Sepsis, unspecified organism (principal); E43 Unspecified severe protein-calorie malnutrition; J90 Pleural effusion, not elsewhere classified; E87.0 Hyperosmolality and hypernatremia; L89.153 Pressure ulcer of sacral region, stage 3; E86.0 Dehydration; D72.0 Genetic anomalies of leukocytes; D64.9 Anemia, unspecified; Z68.1 Body mass index [BMI] 19.9 or less, adult; Z66 Do not resuscitate; Z51.5 Encounter for palliative care; K52.9 Noninfective gastroenteritis and colitis, unspecified; R65.20 Severe sepsis without septic shock; Z90.49 Acquired absence of other specified parts of digestive tract; R26.9 Unspecified abnormalities of gait and mobility; E87.6 Hypokalemia; R73.9 Hyperglycemia, unspecified; G50.0 Trigeminal neuralgia; D72.810 Lymphocytopenia; I10 Essential (primary) hypertension; Z74.01 Bed confinement status; Z79.2 Long term (current) use of antibiotics; Z79.899 Other long term (current) drug therapy; Z87.442 Personal history of urinary calculi

== ENCOUNTER 2017-02-01 12:52 | Inpatient (IN) | payer MEDICARE, OTHER ==
[~2017-02-01] VITALS: Ht 165.1 cm; Wt 47.4 kg
--- NOTE | ~2017-02-01 | CON ---
[place], [place] REPORT OF CONSULTATION NAME: PASTOR HERNÁNDEZ [facility] #: [id number] UNIT #: [id number] ROOM: 407 DOCTOR: CARLTON VELA MD BIRTHDATE: [birth year] DOS: 02/02/2017 REASON FOR CONSULTATION: Assess the patient for current abnormal chest x-ray. HISTORY OF PRESENT ILLNESS: This 87-year-old white female who has been known to me from her past recent hospitalization. The patient presented to the hospital noted with very large left-sided pleural fluid with a suspicion of pleural metastasis. The patient underwent chest tube thoracostomy on this admission on 01/23/2017. The chest tube was kept in place. The patient after draining the pleural fluid, the lungs were noted completely expanded. Chemical pleurodesis were done with TALC slurry on 01/25/2017. Chest tubes were removed 2 days later. There was no pleural fluid drainage noted at that time. Lungs were noted well expanded. The patient was discharged to the nursing facility on 01/30/2017. The patient was brought back to the hospital. The patient has been readmitted to the hospital on 02/01/2017 since the patient describes symptoms of shortness of breath. The patient has been getting oxygen supplementation. Denies symptoms of chest pain. The patient does not have any symptoms reported. Sputum expectoration. She was noted general weakness, fatigue. Appetite was noted moderately decreased per . She has not been reported any symptoms of hemoptysis. REVIEW OF SYSTEMS: CONSTITUTIONAL SYMPTOMS: Generalized weakness, fatigue noted. Denies symptoms of fever or chills. EYES: Denies any burning, redness, or tenderness. EARS, NOSE, THROAT SYMPTOMS: No sore throat, hoarseness, otalgia, postnasal drainage or epistaxis. CARDIOVASCULAR: Denies anginal pain, edema or pain of the lower extremities. GASTROINTESTINAL: Denies dysphagia, nausea, vomiting, diarrhea, abdominal pain, hematemesis, melena, or hematochezia. SKIN: No lesions or rashes. CENTRAL NERVOUS SYSTEM: Denies dizziness, headache, diplopia. Generalized weakness and fatigue was noted. PAST MEDICAL HISTORY: The patient was known with history of recent hospitalization in this hospital from 01/21/2017 until 01/30/2017 for different problems with the main diagnosis was noted as metastatic cancer of the patient at this time and the primary was not established with the current pleural fluid. 1. History of trigeminal neuralgia. 2. Advanced age. The patient with protein calorie malnutrition status. PAST SURGICAL HISTORY: 1. Uterine prolapse ___ bladder surgery. 2. Cholecystectomy. 3. Chest tube thoracostomy left side on 01/23/2017. 4. Chemical pleurodesis with TALC slurry on 01/25/2017. SOCIAL HISTORY: The patient is , has 4 children. There was no history of alcohol use, illicit drug use or any tobacco use previously. [place], [place] REPORT OF CONSULTATION NAME: PASTOR HERNÁNDEZ UNIT #: [id number] ROOM: 407 DOCTOR: MUMTAZ CASTELLANO MD,CARLTON BIRTHDATE: [birth year] FAMILY HISTORY: Mother at the age of 89 due to complications of several illnesses. Father at age of 72, complication related to the cancer of the brain. MEDICATIONS: Current administered medication was noted use of Flonase inhaler, Lovenox for DVT prophylaxis, Tegretol, IV Zosyn and other p.r.n. medications. ALLERGIES: No known allergies to the medications. PHYSICAL EXAMINATION: GENERAL: An 87-year-old white female who has been currently noted to be awake and alert, eating food without any distress. Height of 5 feet 5 inches, weight of 47 kg, BMI 17.4 decreased from previously as 19.8. VITAL SIGNS: Recorded shows the temperature noted as normal, respiratory rate 19-20, heart rate 88-76, blood pressure 114/58-126/56. Pulse oxygen saturation on 2 L nasal cannula was noted 98% saturation. HEENT: Head was atraumatic. Eyes: Nonicterus. NECK: Supple. CARDIOVASCULAR: S1, S2 is audible. LUNGS: Decreased breath sounds in the left lung. There were no crackles or wheezing. ABDOMEN: Soft, nontender. LABORATORY DATA: CBC was done on 02/01/2017. WBC count was minimally elevated at 10.9. Remaining CBC normal. PT/PTT on 02/01/2017 was normal. The CMP was done yesterday on admission was noted normal BUN and creatinine. Glucose 129. Carbon dioxide 33. Remaining CMP was normal. Chest x-ray, 1 view, which were done in the Emergency Room shows haziness of the left lower lobe. Remaining lungs were noted clear. CBC this morning was noted normal. PT/PTT normal this morning. BMP normal this morning except CO2 34. IMPRESSION: 1. The patient is status post chemical pleurodesis for the malignant pleural fluid noted with expected finding with pleural thickening. There was no evidence of any current significant pleural fluid of any concern. 2. Symptoms of shortness of breath at this time. Etiology remains unclear. 3. Generalized weakness with protein calorie malnutrition status as well. Other medical problem noted previously listed in the part of the consultation. PLAN OF MANAGEMENT: At this time, we would not advise any antibiotics. Symptomatic management to be continued. Oxygen supplementation, maintain saturation 93% or greater. No intervention or further assessment will be advised for the current finding of the chest x-ray which were noted as expected. Consider hospice consultation and assessment because of the advanced malignancy, severe protein calorie malnutrition and other issues. Assessment and discussion and hospice was assessed with the patient's , he was agreeable for the hospice assessment. [place], [place] REPORT OF CONSULTATION NAME: PASTOR HERNÁNDEZ UNIT #: [id number] ROOM: 407 DOCTOR: CARLTON VELA MD BIRTHDATE: [birth year] CARLTON PANDYA MD CM:CONSTR:REPORT OF CONSULTATION 1445 02/03/17 0005 interface
--- NOTE | ~2017-02-01 | CON ---
[place], [place] REPORT OF CONSULTATION NAME: PASTOR HERNÁNDEZ [facility] #: [id number] UNIT #: [id number] ROOM: 407 DOCTOR: JOSE TaDAHLIA BIRTHDATE: [birth year] DOS: 02/03/2017 WOUND CARE CONSULTATION HISTORY OF PRESENT ILLNESS: This is an 87-year-old female with multiple medical problems who was recently admitted and discharged from the [facility] for shortness of breath and pleural effusion. She had required a chest tube and pleurodesis for a very large pleural effusion. Pleural fluid was suspicious for malignancy, and in any case, the patient was discharged to senior living and was readmitted to the Emergency Room Department just days afterwards for recurrent shortness of breath. Apparently, a chest x-ray in the Emergency Room Department had shown increasing hazy opacity in the left mid and lower lung friedman in comparison to previous studies. The patient was admitted for further management. It was noted that she had a pressure ulcer of the coccyx and Wound Care has been consulted. This pressure ulcer was present upon last admission and it was felt to be relatively superficial, but at least a stage 3. TheraHoney was recommended, and apparently, the wound was noted to be bigger upon admission at this time, so therefore Wound Care has been consulted for this. PAST MEDICAL HISTORY: Significant for the following. Dehydration, elevated BNP, elevated CRP, hypertension, hypernatremia, hypokalemia, neutrophilia, periodontal disease, pleural effusion on the left, trigeminal neuralgia, unsteady gait. PAST SURGICAL HISTORY: She is status post cholecystectomy, prolapse of the bladder. SOCIAL HISTORY: She is currently living in a group home. Does not drink, never smoked. FAMILY HISTORY: Cancer in the father, type unspecified head cancer. Mother at age 89. ALLERGIES: No known drug allergies. CURRENT MEDICATIONS: Flonase nasal spray, carbamazepine 200 p.o. t.i.d., Zosyn 3.375 IV q.6 hours, lorazepam 0.5 q.4 hours IV p.r.n., Restoril 15 mg p.o. at bedtime p.r.n., Zofran 4 mg IV q.6 hours p.r.n., morphine 2 mg IV q.4 hours p.r.n., milk of mag p.r.n., [place] p.r.n., Tylenol p.r.n. REVIEW OF SYSTEMS: Following patient is somewhat of a poor historian, but states her breathing has improved today from yesterday. She says the nebulizer treatments helped. She denies any current chest pain and there is no cough. There is no hemoptysis, nausea, vomiting or diarrhea. She is incontinent of bowel and bladder and reports some discomfort on the sacral wound. She said it does hurt when she is on it. She says she is trying to stay off of it as much as she can. PHYSICAL EXAMINATION: [place], [place] REPORT OF CONSULTATION NAME: PASTOR HERNÁNDEZ UNIT #: [id number] ROOM: 407 DOCTOR: DAHLIA GARCIA M.D. BIRTHDATE: [birth year] VITAL SIGNS: Temperature is 97.7, pulse is 100, respirations 17, blood pressure is 121/61. GENERAL: This is a very cachectic elderly female who appears chronically ill and debilitated, pleasant, cooperative, in no acute distress. HEENT: Oropharynx shows she has multiple missing teeth and obvious dental caries. Mucous membranes are moist. Extraocular movements are intact. NECK: I do not appreciate any JVD. LUNGS: Have decreased breath sounds in the left base. CARDIOVASCULAR: S1, S2 tachycardic. ABDOMEN: Soft and nontender. EXTREMITIES: There is no edema. She is quite debilitated. Her coccyx wound is measuring 3 x 1.3 x 0.1, it is covered with fibrin slough. It definitely looks larger than last week when I had seen her and there does seem to be more fibrin and slough present than the last time. LABORATORY DATA: Show white count of 8.3; initially, it was 10.9. Hemoglobin is 11.2 and platelets are 355. Potassium is 3.4, sodium 142, BUN 12, creatinine 0.47. LFTs show an albumin of 2.3. The patient did have a nutritional consultation done. ASSESSMENT AND PLAN: Nutrition had recommended a regular diet with Boost chocolate milk shakes 3 times a day. Due to the fact that the wound margins are slightly larger with increasing fibrin and slough, debridement was recommended. I discussed it with the patient as well as the patient's . They are both agreeable to this. The initial margins were 3 x 1.3 x 0.1. The tissue removed was fibrin and slough. There was a minimal to moderate bleeding that was controlled with pressure. Cetacaine spray was used for topical anesthesia. The patient tolerated the debridement well. Post-debridement measurements are 2.5 x 2.5 x 0.1. There was still some fibrin slough left in the base of the wound. ASSESSMENT AND PLAN: Unstageable ulceration of the coccyx. I would recommend Santyl at this point since she has been on TheraHoney and this has not really seemed to help the wound at this point, so I would like to try Santyl if it is available, if not TheraHoney may be utilized. Debridement was done today. There are no sign of an acute infection. I would also recommend Versatel and foam dressing and she is going to be discharged back to senior living facility. She has multiple medical problems and severe protein-calorie malnutrition and debility that will make wound healing difficult. I would also recommend no direct pressure to this wound if possible as well as an offloading mattress if available. If the family and the patient would like to follow up in the Wound Clinic, we would be happy to see her. Discharge orders were written. [place], [place] REPORT OF CONSULTATION NAME: PASTOR HERNÁNDEZ UNIT #: [id number] ROOM: [facility] DOCTOR: DAHLIA GARCIA M.D. BIRTHDATE: [birth year] DAHLIA GARCIA MD CM:CONSTR:REPORT OF CONSULTATION 1628 02/07/17 0952 interface
--- NOTE | ~2017-02-01 | PR ---
[place], [place] PROGRESS NOTE NAME: PASTOR HERNÁNDEZ UNIT #: [id number] ROOM: 407 DOCTOR: MUMTAZ CASTELLANO MD,CARLTON BIRTHDATE: [birth year] DOS: 02/03/2017 PULMONARY FOLLOWUP SUBJECTIVE: She has been noted comfortable at this time, resting, noted awake and alert. Hospice consultation has been consulted by the family members at this time. OBJECTIVE: VITAL SIGNS: For the patient which was recorded show normal temperature, respiratory rate is 17, heart rate of 92, blood pressure 136/62. Pulse oxygen saturation of the patient recorded as 96% on 2 liters nasal cannula. HEENT: No acute change. CARDIOVASCULAR: S1, S2 audible. LUNGS: Decreased breath sounds with noted minimal crackles in the left lower lung. Remaining lungs clear. ABDOMEN: Soft, nontender. LABORATORY DATA: BMP today was noted normal BUN and creatinine. Potassium mildly decreased at 3.4. CBC this morning, hemoglobin 11.2, hematocrit 34.7, platelet count and WBC count were normal. IMPRESSION: 1. Successful chemical pleurodesis noted in the left pleural space for the malignant pleural fluid. 2. Severe debility. PLAN OF MANAGEMENT: No changes in the plan for this patient at this time, continue current plan of therapy. Mild hyperkalemia noted in the lab, which has already been supplemented. CARLTON PANDYA MD CM:PNTRANS [id number] CARLTON CASTELLANO MD 02/03/17 1011 interface
[2017-02-01 12:52] VITALS: BP 87/56
[~2017-02-01 12:52] MED LIST changes: +CARBAMAZEPINE200 M2 PO; +FLUTICASON0.05 MG/AC NAS; +GOOD NEIGHBOR L10 MG PO; +LISINOPRIL20 MG PO
[2017-02-01 13:54] LABS: BASO # 0.1 10*3/uL (0.0-0.1); BASO % 0.5 % (0.0-1.0); EOS # 0.2 10*3/uL (0.0-0.4); EOS % 1.4 % (1.0-4.0); HEMATOCRIT 41.1 % (37.0-47.0); HEMOGLOBIN 13.1 g/dl (12.0-16.0); IG # 0.1 10*3/uL (0.0-0.1); LYMPH # 0.9 10*3/uL (1.3-4.4); LYMPH % 7.9 % (27.0-41.0); MEAN CELL VOLUME 93.6 fl (81.0-99.0); MEAN CORPUSCULAR HGB 29.8 pg (27.0-31.0); MEAN CORPUSCULAR HGB CONC 31.9 g/dl (33.0-37.0); MEAN PLATELET VOLUME 9.5 fl (9.6-12.3); MONO # 0.8 10*3/uL (0.1-1.0); MONO % 7.4 % (3.0-9.0); NEUT % 82.3 % (47.0-73.0); PLATELET COUNT AUTOMATED 397 10*3/uL (130-400); RED BLOOD COUNT 4.39 10*6/uL (4.10-5.10); RED CELL DISTRI WIDTH 12.9 % (0-14.5); WHITE BLOOD COUNT 10.9 10*3/uL (4.8-10.8)
[2017-02-01 14:07] LABS: PROTHROMBIN TIME 10.7 SECONDS (9.0-12.4)
[2017-02-01 14:11] LABS: ALBUMIN 2.3 gm/dl (3.1-4.5); ALKALINE PHOSPHATASE 74 U/L (45-117); BILIRUBIN, TOTAL 0.2 mg/dl (0.2-1.0); BUN 18 mg/dl (7-24); CARBON DIOXIDE 33 mmol/L (21-32); CHLORIDE 99 mmol/L (98-107); EST GLOM FILT AFRICAN AMERICAN > 60 ml/min; GLUCOSE 129 mg/dL (65-99); MAGNESIUM 1.8 mg/dL (1.5-2.1); POTASSIUM 3.8 mmol/L (3.5-5.1); SGOT/AST 45 IU/L (3-35); SGPT/ALT 48 U/L (12-78); SODIUM 140 mmol/L (136-145); TOTAL PROTEIN 6.1 gm/dL (6.4-8.2)
[2017-02-01 14:14] LABS: TROPONIN I < 0.015 ng/ml (<0.045)
[2017-02-01 17:51] VITALS: BP 106/58
[2017-02-01 20:00] VITALS: BP 126/51
[2017-02-02] VITALS: BP 109/57
[2017-02-02 08:00] VITALS: BP 126/56
[2017-02-02 08:35] LABS: BASO # 0.1 10*3/uL (0.0-0.1); BASO % 0.8 % (0.0-1.0); EOS # 0.3 10*3/uL (0.0-0.4); HEMATOCRIT 37.6 % (37.0-47.0); HEMOGLOBIN 12.1 g/dl (12.0-16.0); IG # 0.1 10*3/uL (0.0-0.1); LYMPH % 12.4 % (27.0-41.0); MEAN CELL VOLUME 93.8 fl (81.0-99.0); MEAN CORPUSCULAR HGB 30.2 pg (27.0-31.0); MEAN CORPUSCULAR HGB CONC 32.2 g/dl (33.0-37.0); MEAN PLATELET VOLUME 9.3 fl (9.6-12.3); MONO # 0.6 10*3/uL (0.1-1.0); MONO % 7.4 % (3.0-9.0); NEUT # 5.7 10*3/uL (2.3-7.9); NEUT % 74.1 % (47.0-73.0); PLATELET COUNT AUTOMATED 335 10*3/uL (130-400); RED BLOOD COUNT 4.01 10*6/uL (4.10-5.10); WHITE BLOOD COUNT 7.7 10*3/uL (4.8-10.8)
[2017-02-02 08:44] LABS: PROTHROMBIN TIME 10.5 SECONDS (9.0-12.4)
[2017-02-02 08:48] LABS: BUN 14 mg/dl (7-24); CARBON DIOXIDE 34 mmol/L (21-32); CHLORIDE 103 mmol/L (98-107); EST GLOM FILT AFRICAN AMERICAN > 60 ml/min; GLUCOSE 81 mg/dL (65-99); POTASSIUM 3.8 mmol/L (3.5-5.1); SODIUM 142 mmol/L (136-145)
[2017-02-02 12:00] VITALS: BP 114/58
[2017-02-02 16:00] VITALS: BP 110/54
[2017-02-02 20:00] VITALS: BP 109/54
[2017-02-03] VITALS: BP 143/68
[2017-02-03 05:59] LABS: BUN 12 mg/dl (7-24); CARBON DIOXIDE 31 mmol/L (21-32); CHLORIDE 104 mmol/L (98-107); EST GLOM FILT AFRICAN AMERICAN > 60 ml/min; GLUCOSE 80 mg/dL (65-99); POTASSIUM 3.4 mmol/L (3.5-5.1); SODIUM 142 mmol/L (136-145)
[2017-02-03 06:21] LABS: BASO # 0.1 10*3/uL (0.0-0.1); BASO % 0.6 % (0.0-1.0); EOS # 0.3 10*3/uL (0.0-0.4); EOS % 3.8 % (1.0-4.0); HEMATOCRIT 34.7 % (37.0-47.0); HEMOGLOBIN 11.2 g/dl (12.0-16.0); IG # 0.1 10*3/uL (0.0-0.1); LYMPH % 12.1 % (27.0-41.0); MEAN CORPUSCULAR HGB 30.4 pg (27.0-31.0); MEAN CORPUSCULAR HGB CONC 32.3 g/dl (33.0-37.0); MEAN PLATELET VOLUME 9.6 fl (9.6-12.3); MONO # 0.7 10*3/uL (0.1-1.0); MONO % 7.8 % (3.0-9.0); NEUT # 6.2 10*3/uL (2.3-7.9); PLATELET COUNT AUTOMATED 355 10*3/uL (130-400); RED BLOOD COUNT 3.69 10*6/uL (4.10-5.10); RED CELL DISTRI WIDTH 13.1 % (0-14.5); WHITE BLOOD COUNT 8.3 10*3/uL (4.8-10.8)
[2017-02-03 08:00] VITALS: BP 136/62
[2017-02-03 12:00] VITALS: BP 115/54
[2017-02-03 16:00] VITALS: BP 121/61
== END 2017-02-03 17:54 | disposition other institution (70) | DRG 853 ==
LOC: ED 12:52 → 4E 15:16 → EDHOLD 15:16 → 4E 16:11
PROVIDERS: Emergency Medicine; Internal Medicine
PROC: 0JB70ZZ Excision of Back Subcutaneous Tissue and Fascia, Open Approach (ICD-10-PCS; principal; 2017-02-03)
DX: A41.9 Sepsis, unspecified organism (principal); J96.02 Acute respiratory failure with hypercapnia; E43 Unspecified severe protein-calorie malnutrition; J90 Pleural effusion, not elsewhere classified; L89.153 Pressure ulcer of sacral region, stage 3; E87.5 Hyperkalemia; E87.3 Alkalosis; Z68.1 Body mass index [BMI] 19.9 or less, adult; D64.9 Anemia, unspecified; I10 Essential (primary) hypertension; R65.20 Severe sepsis without septic shock; Z66 Do not resuscitate; Z51.5 Encounter for palliative care; R73.9 Hyperglycemia, unspecified; D72.810 Lymphocytopenia; E87.6 Hypokalemia; Z90.49 Acquired absence of other specified parts of digestive tract; Z90.710 Acquired absence of both cervix and uterus; Z80.8 Family history of malignant neoplasm of other organs or systems

== ENCOUNTER 2017-02-10 16:58 | Inpatient (IN) | payer MEDICARE, OTHER ==
[~2017-02-10] VITALS: Ht 157.4 cm; Wt 49.2 kg
--- NOTE | ~2017-02-10 | EKG ---
[place], [place] ELECTROCARDIOGRAM REPORT NAME: PASTOR HERNÁNDEZ UNIT #: [id number] ROOM: 512 DOCTOR: MUMTAZ CASTELLANO MD,CARLTON BIRTHDATE: [birth year] DOS: 02/10/2017 Procedure done on 02/10/2017 at 1826. Sinus tachycardia noted with heart rate of 107 beats per minute. Nonspecific ST-T changes were noted in the V1, V2 and V3. Clinical significance was unknown. Left atrial enlargement was also noted. CARLTON PANDYA MD CM:EKGRPT:ELECTROCARDIOGRAM REPORT [id number] CARLTON CASTELLANO MD
--- NOTE | ~2017-02-10 | CON ---
[place], [place] REPORT OF CONSULTATION NAME: PASTOR HERNÁNDEZ [facility] #: [id number] UNIT #: [id number] ROOM: 512 DOCTOR: JOSE TaDAHLIA BIRTHDATE: [birth year] DOS: 02/11/2017 WOUND CARE CONSULTATION HISTORY OF PRESENT ILLNESS: This is an 87-year-old female with severe debility who was recently admitted and discharged for shortness of breath and recurrent large pleural effusions. She was discharged approximately less than a week ago, but was readmitted to the ER for recurrent complaints of increasing shortness of breath. PAST MEDICAL HISTORY: Significant for recent pressure ulcer of the coccyx, generalized weakness, hypertension, normocytic anemia, recurrent pleural effusion, severe protein-calorie malnutrition, transaminitis, trigeminal neuralgia, unsteady gait, she is essentially bedbound at this point, cholecystectomy, history of prolapse of the bladder, pleurodesis SOCIAL HISTORY: She does not smoke or drink, is currently in a retirement facility. FAMILY HISTORY: Positive for unspecified head cancer in her father. ALLERGIES: No known drug allergies. HOME MEDICATIONS: Carbamazepine 200 p.o. t.i.d. and fluticasone nasal spray. REVIEW OF SYSTEMS: The patient states that she still feels fairly short of breath. I did ask her about her coccyx wound, which is what I have been consulted for her. She reports some discomfort in the area and is not really able to tell me whether she can keep off of it or not. Her is currently in the room as well and reports that it was recommended to have some drainage, possibly done again, but he does not want to have this done and wants to keep his comfortable at this point. I did discuss possible debridement of the wound and he really does not want to have that done either and just wants to keep his comfortable. I was able to examine the wound earlier today and it essentially looks to me about the same as it had last week where she did have debridement done and had been recommended to use Santyl in the care home; however, it is not clear if that is what was being utilized. There was some concern from the staff that when they removed the dressings that it appeared to have not been changed for quite some time and there was some odor present to the wound and it was not clear exactly what was being put on the wound. PHYSICAL EXAMINATION: WOUND EXAMINATION: In any case, when I examined the wound today, the wound margins are essentially not much different, they are being measured at 2.0 x 1.5 x 0.2. There is still a moderate amount of fibrin and slough present at the base of the wound. The periwound is slightly erythematous, but not tender to touch, when I examined it. Last measurements I have post-debridement were actually larger than this at 2.5 x 2.5. However, the depth was slightly less at [place], [place] REPORT OF CONSULTATION NAME: PASTOR HERNÁNDEZ UNIT #: [id number] ROOM: 512 DOCTOR: DAHLIA GARCIA M.D. BIRTHDATE: [birth year] 0.1. In any case due to family wishes, no debridement was done today. VITAL SIGNS: Last vital signs documented show temperature of 98.2, pulse of 78, respirations 18 and blood pressure 113/56. LABORATORY DATA: Initially had a white count of 17,000 and now it is down to 13, hemoglobin is 10 and platelets are 316. Sodium is 146, creatinine is 0.42. Lactic acid is 2.4. Troponin is negative x 2. The CT scan report shows a large left pleural effusion, enlarging mass, the inferior aspect of the left chest with left hilar, left pulmonary, mediastinal diaphragmatic and subdiaphragmatic involvement. The pathology done on the 3rd does show atypical cells on pathology from the pleural aspirate. ASSESSMENT AND PLAN: Stage 3 pressure ulcer, which essentially is stagnant with still some fibrin and slough at the base of the wound. The overall appearance of the wound does not appear much different to me at this time; however, may be slightly deeper. We will go ahead and use TheraHoney and Maxorb AG to the wound base as it did apparently have some drainage when she presented. I would use a foam over this, but utilize the smaller foam to be applied in a rica-type fashion. We can try padding it up a little bit with 2 pieces of foam to see if that will help pad the area up a little bit more and change it every other day. I would also encourage offloading if possible; however, due to the patient's multiple medical problems and current medical condition, this may not be easy or comfortable for the patient. So, I would encourage offloading if patient can tolerate it and do what we can to keep the patient comfortable. DAHLIA GARCIA MD CM:CONSTR:REPORT OF CONSULTATION 1522 02/11/17 1950 interface
[~2017-02-10 16:58] MED LIST changes: +MEGACE400 MG/10 PO
[2017-02-10 17:33] VITALS: BP 114/61
[2017-02-10 18:25] LABS: BASO % 0.2 % (0.0-1.0); EOS # 0.1 10*3/uL (0.0-0.4); EOS % 0.7 % (1.0-4.0); HEMATOCRIT 37.8 % (37.0-47.0); HEMOGLOBIN 12.3 g/dl (12.0-16.0); LYMPH # 0.7 10*3/uL (1.3-4.4); LYMPH % 3.9 % (27.0-41.0); MEAN CELL VOLUME 91.7 fl (81.0-99.0); MEAN CORPUSCULAR HGB 29.9 pg (27.0-31.0); MEAN CORPUSCULAR HGB CONC 32.5 g/dl (33.0-37.0); MEAN PLATELET VOLUME 9.3 fl (9.6-12.3); MONO # 0.9 10*3/uL (0.1-1.0); NEUT # 15.3 10*3/uL (2.3-7.9); NEUT % 89.8 % (47.0-73.0); PLATELET COUNT AUTOMATED 403 10*3/uL (130-400); RED BLOOD COUNT 4.12 10*6/uL (4.10-5.10); RED CELL DISTRI WIDTH 13.6 % (0-14.5)
[2017-02-10 18:42] LABS: ALBUMIN 2.1 gm/dl (3.1-4.5); ALKALINE PHOSPHATASE 69 U/L (45-117); BUN 17 mg/dl (7-24); CHLORIDE 104 mmol/L (98-107); CREATININE 0.53 mg/dL (0.55-1.02); LIPASE 173 U/L (73-393); MAGNESIUM 1.6 mg/dL (1.5-2.1); POTASSIUM 4.1 mmol/L (3.5-5.1); SGOT/AST 61 IU/L (3-35); SGPT/ALT 17 U/L (12-78); SODIUM 143 mmol/L (136-145); TOTAL PROTEIN 5.7 gm/dL (6.4-8.2)
[2017-02-10 18:43] LABS: TROPONIN I < 0.015 ng/ml (<0.045)
[2017-02-10 20:34] VITALS: BP 134/78
[2017-02-10 22:00] VITALS: BP 137/62
[2017-02-10] MEDS ORDERED: VENTOLIN 02.5 MG/3 M INH (22:03)
[2017-02-10] MEDS ORDERED: DULCOLAX10 M1 R (22:04)
[2017-02-10] MEDS ORDERED: LEXAPRO10 MG PO (22:05)
[2017-02-10] MEDS ORDERED: LISINOPRIL20 MG PO (22:06)
[2017-02-10] MEDS ORDERED: MILK OF MA400 MG/5 M PO (22:08)
[2017-02-10] MEDS ORDERED: SANTYL30 GM T (22:09)
[2017-02-11] VITALS (7 sets, daily range): BP systolic 86–140; BP diastolic 48–73
[2017-02-11 03:55] LABS: BASO % 0.3 % (0.0-1.0); EOS # 0.1 10*3/uL (0.0-0.4); HEMATOCRIT 31.4 % (37.0-47.0); LYMPH # 0.6 10*3/uL (1.3-4.4); LYMPH % 4.5 % (27.0-41.0); MEAN CELL VOLUME 94.6 fl (81.0-99.0); MEAN CORPUSCULAR HGB 30.1 pg (27.0-31.0); MEAN CORPUSCULAR HGB CONC 31.8 g/dl (33.0-37.0); MEAN PLATELET VOLUME 9.2 fl (9.6-12.3); MONO # 0.8 10*3/uL (0.1-1.0); MONO % 5.9 % (3.0-9.0); NEUT # 11.6 10*3/uL (2.3-7.9); NEUT % 87.6 % (47.0-73.0); PLATELET COUNT AUTOMATED 316 10*3/uL (130-400); RED BLOOD COUNT 3.32 10*6/uL (4.10-5.10); RED CELL DISTRI WIDTH 13.6 % (0-14.5); WHITE BLOOD COUNT 13.3 10*3/uL (4.8-10.8)
[2017-02-11 04:02] LABS: BUN 17 mg/dl (7-24); CHLORIDE 107 mmol/L (98-107); CREATININE 0.42 mg/dL (0.55-1.02); MAGNESIUM 1.6 mg/dL (1.5-2.1); PHOSPHOROUS 2.8 mg/dL (2.5-4.9); POTASSIUM 3.8 mmol/L (3.5-5.1); SODIUM 146 mmol/L (136-145)
[2017-02-11 04:03] LABS: ACT PARTIAL THROMBO TIME 24.9 SECONDS (20.8-31.5); INTERNATIONAL NORM RATIO 1.1 (2.0-3.5)
[2017-02-12] VITALS: BP 153/70
[2017-02-12 06:04] LABS: BASO % 0.4 % (0.0-1.0); EOS # 0.2 10*3/uL (0.0-0.4); EOS % 1.8 % (1.0-4.0); HEMOGLOBIN 10.5 g/dl (12.0-16.0); LYMPH # 0.6 10*3/uL (1.3-4.4); LYMPH % 5.2 % (27.0-41.0); MEAN CORPUSCULAR HGB 29.7 pg (27.0-31.0); MEAN CORPUSCULAR HGB CONC 30.9 g/dl (33.0-37.0); MEAN PLATELET VOLUME 9.3 fl (9.6-12.3); MONO # 0.6 10*3/uL (0.1-1.0); MONO % 5.9 % (3.0-9.0); NEUT # 9.3 10*3/uL (2.3-7.9); NEUT % 86.2 % (47.0-73.0); PLATELET COUNT AUTOMATED 285 10*3/uL (130-400); RED BLOOD COUNT 3.54 10*6/uL (4.10-5.10); RED CELL DISTRI WIDTH 13.7 % (0-14.5); WHITE BLOOD COUNT 10.8 10*3/uL (4.8-10.8)
[2017-02-12 06:22] LABS: BUN 13 mg/dl (7-24); CHLORIDE 109 mmol/L (98-107); CREATININE 0.39 mg/dL (0.55-1.02); POTASSIUM 3.4 mmol/L (3.5-5.1); SODIUM 145 mmol/L (136-145)
[2017-02-12 08:00] VITALS: BP 137/69
[2017-02-12 12:00] VITALS: BP 150/75
[2017-02-12 16:00] VITALS: BP 136/45
[2017-02-12 20:00] VITALS: BP 124/65
[2017-02-13] VITALS: BP 121/62
[2017-02-13 06:23] LABS: BASO % 0.2 % (0.0-1.0); EOS # 0.2 10*3/uL (0.0-0.4); EOS % 2.1 % (1.0-4.0); HEMATOCRIT 29.6 % (37.0-47.0); HEMOGLOBIN 9.6 g/dl (12.0-16.0); LYMPH # 0.5 10*3/uL (1.3-4.4); LYMPH % 6.7 % (27.0-41.0); MEAN CELL VOLUME 94.3 fl (81.0-99.0); MEAN CORPUSCULAR HGB 30.6 pg (27.0-31.0); MEAN CORPUSCULAR HGB CONC 32.4 g/dl (33.0-37.0); MEAN PLATELET VOLUME 9.6 fl (9.6-12.3); MONO # 0.5 10*3/uL (0.1-1.0); MONO % 6.4 % (3.0-9.0); NEUT # 6.8 10*3/uL (2.3-7.9); NEUT % 84.2 % (47.0-73.0); PLATELET COUNT AUTOMATED 251 10*3/uL (130-400); RED BLOOD COUNT 3.14 10*6/uL (4.10-5.10); RED CELL DISTRI WIDTH 13.9 % (0-14.5)
[2017-02-13 06:42] LABS: BUN 12 mg/dl (7-24); CHLORIDE 110 mmol/L (98-107); POTASSIUM 3.1 mmol/L (3.5-5.1); SODIUM 147 mmol/L (136-145)
[2017-02-13 06:43] LABS: CREATININE 0.44 mg/dL (0.55-1.02)
[2017-02-13 08:00] VITALS: BP 126/50
[2017-02-13 12:00] VITALS: BP 116/57
[2017-02-13] MEDS ORDERED: LEVAQUIN750 M1 PO (14:02)
== END 2017-02-13 16:04 | disposition other institution (70) | DRG 871 ==
LOC: ED 16:58 → 5E 20:03 → EDHOLD 20:03 → 5E 20:40
PROVIDERS: Internal Medicine; Internal Medicine Hospice and Palliative Medicine; Physician Assistant; Student in an Organized Health Care Education/Training Program; ADMIT Internal Medicine
DX: A41.9 Sepsis, unspecified organism (principal); J15.6 Pneumonia due to other Gram-negative bacteria; E43 Unspecified severe protein-calorie malnutrition; L89.153 Pressure ulcer of sacral region, stage 3; D64.9 Anemia, unspecified; Z68.1 Body mass index [BMI] 19.9 or less, adult; R65.20 Severe sepsis without septic shock; D47.3 Essential (hemorrhagic) thrombocythemia; Y95 Nosocomial condition; D72.810 Lymphocytopenia; R73.9 Hyperglycemia, unspecified; E87.6 Hypokalemia; I10 Essential (primary) hypertension; Z66 Do not resuscitate; Z51.5 Encounter for palliative care; Z74.01 Bed confinement status; Z79.899 Other long term (current) drug therapy; Z90.49 Acquired absence of other specified parts of digestive tract; Z90.710 Acquired absence of both cervix and uterus; Z80.8 Family history of malignant neoplasm of other organs or systems